=== PATIENT | male | born 1985 | race Caucasian/White ===

== ENCOUNTER → 2023-12-01 07:57 | Outpatient (CLI) | payer OTHER, SELFPAY ==
--- NOTE | 2023-12-01 08:03 | DI.MRI.S_ITS ---
PROCEDURE: MR HEAD/BRAIN WO/W CON INDICATIONS: Malignant neoplasm of brain, unspecified TECHNIQUE: Noncontrast axial T1 spin echo, axial T2 fast spin echo, sagittal and axial FLAIR, coronal T2 fast spin echo, axial gradient echo, axial diffusion and ADC through the brain. After the administration of contrast, axial and coronal and sagittal 3D VIBE or T1 spin echo with fat saturation through the brain. COMPARISON: None. FINDINGS: Image quality: Excellent. CSF Spaces: Basal cisterns are patent. No extra-axial fluid collections. Ventricles are normal in size and shape. Brain: Right parietal surgical resection cavity. No evidence of residual or recurrent neoplasm. No midline shift. No acute intracranial bleeds. No abnormal intracranial enhancement. The brainstem appears normal. Diffusion-weighted images demonstrate no acute infarct. No chronic ischemic insults. Normal intravascular flow voids are present. Skull and face: Right parietal craniotomy changes.. Orbits appear normal. Sinuses: Bilateral maxillary sinus mucous retention cysts. mastoids appear clear. 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 No evidence of residual or recurrent right parietal neoplasm. Dictated by: Sandy Bingham MD, PhD on 12/01/2023 at 11:01 Approved by: Sandy Bingham MD, PhD on 12/01/2023 at 11:04
== END ==
LOC: MRI 08:02
DX: C71.9 Malignant neoplasm of brain, unspecified (principal); J34.1 Cyst and mucocele of nose and nasal sinus; Z98.890 Other specified postprocedural states
CPT/HCPCS: 70553; A9579